=== PATIENT | male | born 1960 | race Caucasian/White ===

== ENCOUNTER → 2022-10-25 | Outpatient (CLI) | payer BC ==
[2022-10-25 20:51] LABS: ALT 20 U/L (10-49); AST 20 U/L (14-35); Albumin 4.3 d/dL (3.8-4.9); Albumin/Globulin Ratio 2.15 Ratio (1.60-3.17); Alkaline Phosphatase 73 U/L (41-126); Blood Urea Nitrogen 12.4 mg/dL (9.0-27.0); Calcium 9.3 mg/dL (8.7-10.3); Carbon Dioxide 22.4 mmol/L (21.6-31.8); Chloride 106 mmol/L (96-109); Glucose 81 mg/dL (70-110); Sodium 140 mmol/L (135-145); Total Bilirubin 0.9 mg/dL (0.3-1.2); Total Protein 6.3 d/dL (6.2-8.2)
[2022-10-26 00:06] LABS: HCT 45.4 % (39.6-50.0); HGB 14.8 d/dL (12.0-15.0); MCH 29.1 pg (27.0-32.0); MCHC 32.6 d/dL (32.0-37.0); MCV 89.2 FL (80.0-97.0); Mean Platelet Volume 13.2 FL (9.5-12.2); NRBC Per 100 WBC 0 X 10*3/uL (0.00-0.01); Platelet Count 146 X 10*3/uL (140-440); RBC 5.09 X 10*6/uL (4.40-5.60); WBC 6.26 X 10*3/uL (4.50-10.00)
[2022-10-26 00:07] LABS: Basophils # (A) 0.05 X 10*3/uL (0.00-0.10); Basophils % (A) 0.8 %; Eosinophils # (A) 0.11 X 10*3/uL (0.04-0.35); Eosinophils % (A) 1.8 %; Lymphocytes # (A) 1.27 X 10*3/uL (0.90-5.00); Lymphocytes % (A) 20.3 %; Monocytes # (A) 0.43 X 10*3/uL (0.20-1.00); Monocytes % (A) 6.9 %; Neutrophils # (A) 4.39 X 10*3/uL (1.80-7.70)
== END | disposition home or self-care (01) ==
LOC: LABWHC1 14:23
PROVIDERS: ATTEND Pediatrics
DX: N62 Hypertrophy of breast (principal)
CPT/HCPCS: 36415; 80053; 82040; 84270; 84403; 84443; 85025

== ENCOUNTER → 2022-11-01 | Outpatient (CLI) | payer BC ==
--- NOTE | 2022-11-01 14:37 | MM ---
Reason for Exam: Clinical finding. Tissue Density: The breast tissue is heterogeneously dense. This may lower the sensitivity of mammography. Findings: Analyzed By CAD. There is asymmetric gynecomastia, left greater than right. However, density in the subareolar left breast has a rounded configuration measuring up to 5 cm. Further ultrasound evaluation is recommended. Overall Assessment: Incomplete: need additional imaging evaluation, BI-RAD 0 Management: Diagnostic Breast Ultrasound of the left breast. Electronically signed and approved by: Ty Shipley M.D. Radiologist
--- NOTE | 2022-11-01 14:56 | USB ---
Reason for Exam: Clinical finding. Technique: Method: Targeted. Findings: The axilla of the left breast and the retroareolar of both breasts were scanned. A complete US of all four quadrants of the breast , axilla, and retro-areolar region were reviewed. There is irregular hypoechoic lesion in the subareolar left breast measuring 3.5 x 2.4 x 1.7 cm. Given the irregularity on some of the ultrasound images and rounded appearance on the mammogram, tissue sampling can confirm benign gynecomastia. Overall Assessment: Suspicious, BI-RAD 4 Management: Ultrasound Core Biopsy of the left breast. To confirm benign gynecomastia. Results were given to the patient verbally at the time of exam. Electronically signed and approved by: Ty Shipley M.D. Radiologist
== END | disposition home or self-care (01) ==
LOC: RADMAMWWP 14:03
PROVIDERS: ATTEND Pediatrics
DX: N62 Hypertrophy of breast (principal)
CPT/HCPCS: 77062; 77066

== ENCOUNTER → 2022-11-14 | Day surgery (SDC) | payer BC ==
--- NOTE | 2022-11-17 13:29 | MM ---
Reason for Exam: Post Procedure Mammogram. Last screening mammogram was performed less than 1 month ago. Prior Study Comparison: 11/01/2022 Bilateral MG 3D diag mammo w/cad [facility], [facility]. Tissue Density: Left: The breast tissue is heterogeneously dense. This may lower the sensitivity of mammography. Pathology Description: Location: retroareolar. Marker Left Behind. Needle Type: Mammotome Cores: 5 Skin Nicks: 1 Gauge: 13 The procedure of ultrasound guided core biopsy was explained to the patient. Benefits, alternatives, and risks were discussed. An informed consent was then obtained. A timeout was performed. The patient was placed in supine positioning for imaging and for the procedure. The overlying skin was prepped and draped in usual sterile fashion. Lidocaine was used as anesthetic into the skin and again with epinephrine in the subcutaneous tissue up to area of concern in the breast. A small skin sharmin was made with surgical scalpel. Under ultrasound guidance, a 12-gauge vacuum assisted biopsy gun device was used to obtain 5 core samples. A biopsy clip was left in lesion. Hydromark T4 core marker was placed. The patient tolerated the procedure well without any immediate complication. The patient was kept in the radiology department for short stay after the procedure and then discharged home in stable condition. Postprocedure mammogram: The patient was transferred to mammography for physician ordered post procedure mammogram for clip placement verification. Clip is in the expected region of the left breast. Impression: Successful ultrasound guided core biopsy of area of concern in the left breast, full pathology results to follow. Recommendations: 1. Recommendations are pending pathology results. Pathology Results: Result: Benign, Gynecomastia. LEFT BREAST POSTERIOR NIPPLE, NEEDLE CORE BIOPSY: Gynecomastia. Overall Assessment: Benign Assessment: MG diagnostic mammo LT wo CAD. - Left: Benign, BI-RAD 2. Management: Diagnostic Breast Ultrasound of the left breast in 6 months. Electronically signed and approved by: Deepak Kyle D.O. Radiologis
== END ==
LOC: RADUSWWP 07:42
PROVIDERS: ATTEND Surgery
DX: N62 Hypertrophy of breast (principal)
CPT/HCPCS: 88305; 77065; 19083; A4648

== ENCOUNTER → 2023-01-27 | Outpatient (CLI) | payer BC ==
[2023-01-27 16:36] VITALS: BP 153/88; PULSE 60; RESP 16; TEMP 98.3
--- NOTE | 2023-01-27 16:42 | P.PN ---
Subjective Progress Note Date: 01/27/23 Principal diagnosis: left breast gynecomastia gynecomastia Balbir is a 62 year old male with a biopsy of the left breast showing gynecomastia. He had a left breast ultrasound on 11-01-22 as well as a bilateral mammogram on the same date. These revealed the lesion in the left breast. The patient was mowing the yard and he noted pain the left breast. After that he felt a lump in the area. He does not feel any changes in the right breast. It is not complaining of any nipple discharge or skin changes. Patient states it is increased in size since he first noted in September, and it is tender about 60% of the time. It is tender even if he does not have any pressure on the area. He has not had any surgery on his breast other than the recent biopsy. He is not complaining of any recent trauma or infection in the breast. He is not complaining of any testicular changes. Patient has had 20 pound weight loss since May. She has decreased his intake of pop and has had decreased discomfort in his breast. He does however have persistent pain and still wishes to have the gynecomastia tissue removed. caffiene: 5 cans of pop/day pepsi nicotine: none chocolate: daily Family history: Mother: Colon cancer Surgical History: Bilateral thumb surgery Left wrist surgery Ventral hernia repair Cyst removed from back Right meniscus surgery Medical history: none Social History: nicotine: none alcohol: occasional drugs: none - Constitutional Constitutional: Denies chills, Denies fever - EENT Eyes: denies blurred vision, denies pain Ears: deny: decreased hearing, tinnitus Ears, nose, mouth and throat: Denies headache, Denies sore throat - Breasts Breasts: bilateral: as per HPI - Cardiovascular Cardiovascular: Reports chest pain, Reports shortness of breath - Respiratory Respiratory: Denies cough, Denies 7 - Gastrointestinal Gastrointestinal: Denies abdominal pain, Denies diarrhea, Denies nausea, Denies vomiting - Genitourinary (Male) Genitourinary: Denies dysuria, Denies hematuria - Musculoskeletal Musculoskeletal: Denies myalgias - Integumentary Comment: none - Neurological Neurological: Denies numbness, Denies weakness - Psychiatric Psychiatric: Denies anxiety, Denies depression - Endocrine Endocrine: Reports weight change, Denies fatigue - Hematologic/Lymphatic Comment: none - Allergic/Immunologic Allergic/Immunologic: Reports seasonal allergies Past Medical History Past Medical History: No Reported History History of Any Multi-Drug Resistant Organisms: None Reported Past Surgical History: Hernia Repair Additional Past Surgical History / Comment(s): Left thumb surgery for arthritis. Left wrist surgery x 2. Cyst removed on lower back. Right knee meniscus repair. Past Anesthesia/Blood Transfusion Reactions: Previous Problems w/ Anesthesia Additional Past Anesthesia/Blood Transfusion Reaction / Comment(s): has trouble staying "under". Past Psychological History: No Psychological Hx Reported Smoking Status: Never smoker Past Alcohol Use History: Occasional Past Drug Use History: None Reported Medications and Allergies Home Medications Medication Instructions Recorded Confirmed Type No Known Home Medications 11/02/22 12/02/22 History Allergies Allergy/AdvReac Type Severity Reaction Status Date / Time codeine AdvReac Nausea Verified 12/02/22 16:03 Objective - Vital Signs Vital signs: Intake & Output 01/26/23 01/27/23 01/27/23 18:59 06:59 18:59 Weight 79.379 kg - Constitutional General appearance: Present: cooperative - EENT Eyes: Present: EOMI ENT: Present: hearing grossly normal - Neck Neck: Present: normal ROM - Respiratory Respiratory: bilateral: CTA - Cardiovascular Rhythm: regular Heart sounds: normal: S1, S2 - Gastrointestinal General gastrointestinal: Present: soft - Integumentary Integumentary: Present: normal turgor - Musculoskeletal Musculoskeletal: Present: gait normal - Psychiatric Psychiatric: Present: A&O x's 3, appropriate affect, intact judgment & insight - Additional findings Additional findings: Breast Exam: Inspection: Left breast larger than right breast Palpation: Right breast: Multi-positional exam fibroglandular changes no dominant masses or nodules of concern Right axilla: No adenopathy of concern Left breast: Multi-positional exam fibroglandular changes without definite fullness in the post areolar region approximately 4 cm x 3 cm in size consistent with the biopsy area of gynecomastia, biopsy site is clean and dry with no evidence of infection or hematoma Left axilla: No adenopathy of concern Assessment and Plan Assessment: mpression: Symptomatic asymmetric left breast gynecomastia Plan: Patient would like to have the left breast mass removed as it is painfula s he is symptomatic He and his understand this was not cancer nor is it precancer however it is very symptomatic and painful for the patient He is going to attempt lifestyle modification to stop his caffeine intake prior to removal of the area Cc: Dr. Campbell
== END ==
LOC: WWCWWP 15:48
PROVIDERS: ATTEND Surgery
DX: N64.89 Other specified disorders of breast (principal); Z88.5 Allergy status to narcotic agent

== ENCOUNTER → 2023-02-10 | Outpatient (CLI) | payer BC ==
[2023-02-10 15:57] VITALS: RESP 17
== END ==
LOC: WWCWWP 14:45
PROVIDERS: ATTEND Surgery
DX: Z53.9 Procedure and treatment not carried out, unspecified reason (principal)

== ENCOUNTER → 2023-02-16 | Outpatient (CLI) | payer BC ==
--- NOTE | 2023-02-16 09:01 | P.PN ---
Progress Note - Text Progress Note Date: 02/16/23 Balbir is a 62 year old male status post mastectomy for gynecomastia on 02-07-23. He was seen on 02-10-23 for a WILBERT that was plugged. This was stripped with good functioin. Pathology revealed gynecomastia. He developed a pain in a posterior dermatome on the contralateral side which is believed to be shingles and was given a prescription for valacyclovir from Dr. Campbell. Examination: Lungs: Clear Heart: Regular rate and rhythm Incision: Clean and dry WILBERT minimal output is serous in nature Plan: DC sutures DC WILBERT Continue valcyclovir Patient will follow up in 2 weeks Cc: Dr. Campbell
[2023-02-16 09:18] VITALS: BP 156/99; PULSE 85; RESP 16; TEMP 97.8
== END ==
LOC: WWCWWP 08:39
PROVIDERS: ATTEND Surgery
DX: Z04.89 Encounter for examination and observation for other specified reasons (principal); N62 Hypertrophy of breast; Z88.5 Allergy status to narcotic agent

== ENCOUNTER 2023-03-17 11:44 | Day surgery (SDC) | payer BC ==
[2023-03-15 15:23] VITALS: BMI 28.1
[~2023-03-17 11:44] MED LIST: LACTATED RINGERS 1,000 ML IV SCH
[2023-03-17 13:00] VITALS: RESP 16; TEMP 98.4
[2023-03-17] MEDS ORDERED: LIDOCAINE 1% INJ 10MG/ML (20 ML MDV) ONE (13:37)
[2023-03-17] MEDS ORDERED: PROPOFOL 10 MG/ML 20 ML VIAL IV ONE (13:37)
--- NOTE | 2023-03-17 13:52 | P.PCN ---
Date of Procedure: 03/17/23 Procedure(s) Performed: BRIEF HISTORY: Patient is a 62-year-old pleasant male scheduled for an elective colonoscopy as a part of screening for colon cancer and family history of colon cancer. His mother was diagnosed with colon cancer at age 70. PROCEDURE PERFORMED: Colonoscopy. PREOPERATIVE DIAGNOSIS: Screening for colon cancer/family history of colon cancer. IV sedation per Anesthesia. PROCEDURE: After informed consent was obtained, the patient, was brought into the endoscopy unit. IV sedation was administered by Anesthesia under continuous monitoring. Digital rectal examination was normal. Initially the Olympus CF-160 flexible video colonoscope was then inserted in the rectum, gradually advanced into the cecum without any difficulty. Careful examination was performed as the scope was gradually being withdrawn. Ileocecal valve and the appendiceal orifice were visualized and appeared normal. Prep was excellent. Mucosa of the cecum, ascending colon, transverse colon, descending colon, sigmoid colon, and rectum appeared normal. Scattered diffuse diverticulosis. Retroflexion was performed in the rectum and no lesions were seen. The patient tolerated the procedure well. IMPRESSION: Normal-appearing colon from rectum to cecum with no evidence of colorectal neoplasia. Scattered diffuse diverticula RECOMMENDATIONS: Findings of this examination were discussed with the patient as well as his family. He was advised to have a repeat screening colonoscopy every 5 years because of the family history of colon cancer.
[2023-03-17 14:31] VITALS: BP 144/89; PULSE 65
== END 2023-03-17 14:39 | disposition home or self-care (01) ==
LOC: ORWHC2ENDO 11:44
PROVIDERS: ATTEND Internal Medicine Gastroenterology
DX: Z12.11 Encounter for screening for malignant neoplasm of colon (principal); K57.30 Diverticulosis of large intestine without perforation or abscess without bleeding; Z88.5 Allergy status to narcotic agent; Z79.899 Other long term (current) drug therapy; Z80.0 Family history of malignant neoplasm of digestive organs; Z90.12 Acquired absence of left breast and nipple; Z98.890 Other specified postprocedural states
CPT/HCPCS: 45378; J2001; J2704

== ENCOUNTER → 2023-11-20 | Outpatient (CLI) | payer BC ==
--- NOTE | 2023-11-27 13:10 | MR ---
EXAMINATION TYPE: MR iac wo/w con DATE OF EXAM: 11/20/2023 COMPARISON: None HISTORY: Hearing loss right ear. CONTRAST: Performed utilizing 8 mL intravenous Gadavist gadolinium contrast. TECHNIQUE: Multiplanar, multiecho imaging on a 3.0 Bambi magnet is performed through the brain. Atte ntion is paid to the internal auditory canals with thin section imaging. Postcontrast imaging is per formed through the internal auditory canals. FINDINGS:Craniovertebral junction is normal. The pituitary is normal. Diffusion-weighted imaging is performed. No suspicious hyperintensity is present to suggest an acute intracranial infarct or acute ischemic area. Signal within the brain signal appears normal. No suspicious hyperintensities on T2 or inversion mary very weighted sequences.. IACs: Thin section imaging is performed through the internal auditory canals and cerebellar pontine a ngles. No cerebellar pontine angle masses are evident. The internal auditory canals appear normal w ithout expansion or erosion. A circular canals are normal. Cochlea are unremarkable. Postcontrast imaging was performed. No suspicious enhancement is evident within the internal audito ry canals or the included portions of the brain. IMPRESSION: 1. No suspicious abnormalities to account for right ear hearing loss
== END | disposition home or self-care (01) ==
LOC: RADMRIMAIN 20:45
PROVIDERS: ATTEND Otolaryngology
DX: H90.41 Sensorineural hearing loss, unilateral, right ear, with unrestricted hearing on the contralateral side (principal)
CPT/HCPCS: 70553; A9585